=== PATIENT | female | born 1995 | race Caucasian/White ===

== ENCOUNTER → 2018-01-31 | Outpatient (CLI) | payer BC | LOC: COL.RAD 17:14 | DX: R07.9 Chest pain, unspecified (principal); R79.1 Abnormal coagulation profile; Z79.3 Long term (current) use of hormonal contraceptives | CPT/HCPCS: Q9967 ==

== ENCOUNTER → 2018-01-31 | Outpatient (CLI) | payer BC ==
[2018-01-31 15:07] LABS: HEMATOCRIT 40.6 % (37.0-47.0); MEAN CELL VOLUME 87 fl (80.0-100.0); MEAN CORPUSCULAR HEMOGLOBIN 30 pg (27.0-31.0); MEAN CORPUSCULAR HGB CONC 35 g/dl (33.0-37.0); MEAN PLATELET VOLUME 9.3 fl (7.4-10.4); PLATELET COUNT 233 K/mm3 (130-400); RED BLOOD COUNT 4.68 M/mm3 (4.10-5.30); REDCELL DISTRIBUTION WIDTH-CV 11.8 % (11.5-14.5)
[2018-01-31 15:32] LABS: ALANINE AMINOTRANSFERASE 60 U/L (9-52); ALBUMIN 4.2 gm/dL (3.5-5.0); ALKALINE PHOSPHATASE 81 U/L (50-136); ANION GAP 7 mmol/L (7-16); AST,SGOT 48 U/L (15-37); BILIRUBIN,TOTAL 0.5 mg/dL (0.0-1.0); BLOOD UREA NITROGEN 9 mg/dL (7-17); CALCIUM 8.8 mg/dL (8.4-10.2); CARBON DIOXIDE 28 mmol/L (22-30); CHLORIDE 99 mmol/L (98-107); CREATININE, serum 0.57 mg/dL (0.52-1.25); GLUCOSE 94 mg/dL (74-106); POTASSIUM 3.9 mmol/L (3.4-5.0); SODIUM 134 mmol/L (137-145); TOTAL PROTEIN 7.2 gm/dL (6.4-8.2)
[2018-01-31 15:49] LABS: TROPONIN-I < 0.012 ng/mL (0.000-0.034)
[2018-01-31 15:53] LABS: BAND 36 % (0-10); EOSINOPHIL 1 % (0-4); NEUTROPHILS 23 % (42.0-75.2)
[2018-01-31 15:54] LABS: LYMPHOCYTE 37 % (20.0-51.0); PLATELET ESTIMATE NORMAL (NORMAL)
== END ==
LOC: COL.LAB 13:39
PROVIDERS: Physician Assistant
DX: Z01.89 Encounter for other specified special examinations (principal)

== ENCOUNTER → 2019-03-03 | Outpatient (CLI) | payer BC | LOC: COL.RAD 07:28 | DX: R10.9 Unspecified abdominal pain (principal) ==